=== PATIENT | male | born 1945 | race Caucasian/White ===

== ENCOUNTER 2017-10-30 10:55 | Outpatient (CLI) | payer OTHER | END 2017-10-30 10:56 | disposition home or self-care (01) | LOC: NONPT 10:55 | PROVIDERS: ATTEND Family Medicine | DX: N39.0 Urinary tract infection, site not specified (principal) | CPT/HCPCS: 81001; 87086 ==

== ENCOUNTER 2017-12-17 07:27 | Outpatient (CLI) ==
[2017-12-17 07:58] VITALS: BMI 35.9
== END 2017-12-17 07:28 | disposition short-term general hospital (02) ==
LOC: AMBL 07:27
PROVIDERS: ATTEND Internal Medicine
DX: R06.9 Unspecified abnormalities of breathing (principal); F41.0 Panic disorder [episodic paroxysmal anxiety]

== ENCOUNTER 2017-12-17 07:39 | Emergency (ER) ==
[2017-12-17 07:58] VITALS: BP 114/74; TEMP 97.9; BMI 35.9
[2017-12-17] MEDS: SOLU-MEDROL 125 MG IVP STA (08:09)
[2017-12-17] MEDS: DUONEB NEB STA (08:16)
[2017-12-17] MEDS: ATIVAN IVP STA (08:30)
--- NOTE | 2017-12-17 08:32 | DI ---
EXAM: Single frontal view of the chest HISTORY: Cough. COMPARISON: None FINDINGS: Cardiomediastinal silhouette is unremarkable at upper limit of normal for size. There is n o pneumothorax or effusion. There is no consolidation, nodule or mass. There are is questionable he aling left rib fracture noted in the lateral ninth rib. IMPRESSION: 1. No acute cardiopulmonary process or consolidation with cardiomediastinal silhouette at upper limi t of normal for size. 2. Questionable healing left rib fracture.
--- NOTE | 2017-12-17 08:40 | ED.PDOC ---
General ED Provider: Dr. ZOE MARLEY Chief Complaint: Respiratory Complaint Stated Complaint: shortness of breath Time Seen by Physician: 08:00 (arrived SHORT OF BREATH O2 SAT IN UPPER 90'S ON 2 L NC ) Mode of Arrival: Ambulance Information Source: Patient, Retirement, EMT Exam Limitations: No limitations Nursing and Triage Documentation Reviewed and Agree: Yes Reviewed sepsis parameters & appropriate labs ordered?: Yes System Inflammatory Response Syndrome: Not Applicable Sepsis Protocol: For patient's 13 years and over: Temp is 96.8 and below OR 101 and greater Pulse >90 BPM Resp >20/minute Acutely Altered Mental Status Are patient's symptoms suggestive of a new infection, such as: -Pneumonia -Skin, Soft Tissue -Endocarditis -UTI -Bone, Joint Infection -Implantable Device -Acute Abdominal Infection -Wound Infection -Meningitis -Blood Stream Catheter Infection -Unknown System Inflammatory Response Syndrome: Not Applicable (HAD A LEG OPERATION AT [facility] FOR FEMUR FX LEFT SIDE) Review of Systems - Review Of Systems Constitutional: Reports: Malaise, Weakness Eyes: Reports: No symptoms Ears, Nose, Mouth, Throat: Reports: No symptoms Respiratory: Reports: Cough, Short of air Cardiac: Reports: No symptoms GI: Reports: No symptoms : Reports: No symptoms Musculoskeletal: Reports: Other (LEFT LEG IS IN A BRACE ) Skin: Reports: No symptoms Neurological: Reports: No symptoms Endocrine: Reports: No symptoms Hematologic/Lymphatic: Reports: No symptoms All Other Systems: Reviewed and Negative Past Medical History - Past Medical History Previously Healthy: No Endocrine: Reports: DM 2 Cardiovascular: Reports: Hypertension, CHF Respiratory: Reports: None Hematological: Reports: None Gastrointestinal: Reports: GERD Genitourinary: Reports: CKD (ON DIALYSIS) Neuro/Psych: Reports: None Musculoskeletal: Reports: None Cancer: Reports: None - Surgical History General Surgical History: Reports: None - Family History Family History: Reports: None - Social History Smoking Status: Former smoker Hx Substance Use: No Alcohol Screening: None Physical Exam - Physical Exam Appearance: Ill-appearing Ill-appearing: Moderate Pain Distress: Moderate Eyes: IFEANYI, EOMI, Conjunctiva clear ENT: Ears normal, Nose normal, Oropharynx normal Respiratory: Airway patent, Breath sounds diminished, Respirations nonlabored, Rhonchi, Wheezes Cardiovascular: RRR, Pulses normal, No rub, No murmur GI/: Soft, Nontender, No masses, Bowel sounds normal, No Organomegaly Musculoskeletal: Normal strength, ROM intact, No edema, No calf tenderness Skin: Warm, Dry, Normal color Neurological: Sensation intact, Motor intact, Reflexes intact, Cranial nerves intact, Alert, Oriented Psychiatric: Affect appropriate, Mood appropriate Interpretation - Radiology Interpretation Radiology Interpretation By: Radiologist Radiology Results: No acute changes Re-Evaluation - Re-Evaluation Time of Re-Evaluation: 08:43 Status: Improved Vital Signs Stable: Yes Pain Level: 0 Appearance: NAD (AFTER ATIVAN PULSE OX IS ABOUT 100 , NOT ANXIOUS, RESTING) Lungs: Other (WHEEZING) Skin: Warm and Dry Neuro: Alert and Oriented X3 CV: RRR Critical Care Note - Critical Care Note Total Time (mins): 0 Course - Course Hematology/Chemistry: 12/17/17 07:50 12/17/17 07:50 Orders, Labs, Meds: Lab Review 12/17/17 12/17/17 12/17/17 07:50 07:50 07:50 WBC 5.95 RBC 3.09 L Hgb 9.7 L Hct 30.4 L MCV 98.4 H MCH 31.4 H MCHC 31.9 RDW Coeff of Neil 15.8 H Plt Count 266 Immature Gran % (Auto) 1.5 Neut % (Auto) 52.3 Lymph % (Auto) 31.1 [place] % (Auto) 11.8 H Eos % (Auto) 3.0 Baso % (Auto) 0.3 Immature Gran # (Auto) 0.1 Neut # (Auto) 3.1 Lymph # (Auto) 1.9 [place] # (Auto) 0.7 Eos # (Auto) 0.2 Baso # (Auto) 0.0 PT 11.2 H INR 1.10 APTT 30.4 D-Dimer (Manual) Puncture Site O2 Saturation ABG pH ABG pCO2 ABG pO2 ABG HCO3 ABG Total CO2 ABG Base Excess Orion Test FiO2 % Sodium 142 Potassium 3.5 Chloride 98 Carbon Dioxide 29 Anion Gap 18.5 BUN 19 H Creatinine 5.39 H* Estimated GFR (MDRD) 11.00 BUN/Creatinine Ratio 3.52 Glucose 59 L Lactic Acid Calcium 8.5 Total Bilirubin 0.5 AST 25 ALT 15 Alkaline Phosphatase 44 L Total Creatine Kinase 88 Troponin I 0.0510 Total Protein 6.9 Albumin 2.7 L Globulin 4.2 Albumin/Globulin Ratio 0.64 Procalcitonin Influ A Molecular Assay Influ B Molecular Assay 12/17/17 12/17/17 12/17/17 07:50 07:50 07:51 WBC RBC Hgb Hct MCV MCH MCHC RDW Coeff of Neil Plt Count Immature Gran % (Auto) Neut % (Auto) Lymph % (Auto) [place] % (Auto) Eos % (Auto) Baso % (Auto) Immature Gran # (Auto) Neut # (Auto) Lymph # (Auto) [place] # (Auto) Eos # (Auto) Baso # (Auto) PT INR APTT D-Dimer (Manual) 3136.80 Puncture Site R brachial O2 Saturation 97.0 ABG pH 7.555 H* ABG pCO2 37.1 ABG pO2 75.0 L ABG HCO3 32.9 H ABG Total CO2 34 H ABG Base Excess 11 H Orion Test + FiO2 % 21.0 Sodium Potassium Chloride Carbon Dioxide Anion Gap BUN Creatinine Estimated GFR (MDRD) BUN/Creatinine Ratio Glucose Lactic Acid Calcium Total Bilirubin AST ALT Alkaline Phosphatase Total Creatine Kinase Troponin I Total Protein Albumin Globulin Albumin/Globulin Ratio Procalcitonin 0.68 Influ A Molecular Assay Influ B Molecular Assay 12/17/17 12/17/17 08:00 08:10 WBC RBC Hgb Hct MCV MCH MCHC RDW Coeff of Neil Plt Count Immature Gran % (Auto) Neut % (Auto) Lymph % (Auto) [place] % (Auto) Eos % (Auto) Baso % (Auto) Immature Gran # (Auto) Neut # (Auto) Lymph # (Auto) [place] # (Auto) Eos # (Auto) Baso # (Auto) PT INR APTT D-Dimer (Manual) Puncture Site O2 Saturation ABG pH ABG pCO2 ABG pO2 ABG HCO3 ABG Total CO2 ABG Base Excess Orion Test FiO2 % Sodium Potassium Chloride Carbon Dioxide Anion Gap BUN Creatinine Estimated GFR (MDRD) BUN/Creatinine Ratio Glucose Lactic Acid 7.6 Calcium Total Bilirubin AST ALT Alkaline Phosphatase Total Creatine Kinase Troponin I Total Protein Albumin Globulin Albumin/Globulin Ratio Procalcitonin Influ A Molecular Assay Negative by naat Influ B Molecular Assay Positive by naat H Orders Category Date Time Status ABG DRAW REQUEST Stat CARDIO 12/17/17 07:52 Completed EKG-(ED ONLY) Stat CARDIO 12/17/17 07:51 Completed NEBULIZER TREATMENT Stat CARDIO 12/17/17 07:52 Completed NPO REMINDER: IMAGING ONCE CARE 12/17/17 09:41 Completed ED IV/MEDIPORT/POWERPORT .ONCE EMERGENCY 12/17/17 07:51 Active ABG Stat LAB 12/17/17 07:51 Completed BLOOD CULTURE (ED ONLY) Stat LAB 12/17/17 08:10 Results CBC W/ AUTO DIFF Stat LAB 12/17/17 07:50 Completed COMPREHENSIVE METABOLIC PANEL Stat LAB 12/17/17 07:50 Completed CREATINE KINASE Stat LAB 12/17/17 07:50 Completed D-DIMER Stat LAB 12/17/17 07:50 Completed FLU A/B MOLECULAR Stat LAB 12/17/17 08:00 Completed LACTIC ACID Stat LAB 12/17/17 08:10 Completed PARTIAL THROMBOPLASTIN TIME Stat LAB 12/17/17 07:50 Completed PROCALCITONIN Stat LAB 12/17/17 07:50 Completed PT WITH INR Stat LAB 12/17/17 07:50 Completed TROPONIN I Stat LAB 12/17/17 07:50 Completed 0.9 % Sodium Chloride [Saline Flush] MEDS 12/17/17 07:50 Discontinued 1 syr IVF PRN PRN Ipratropium/Albuterol Neb [Duoneb] MEDS 12/17/17 07:52 Discontinued 1 vial NEB ONCE STA Lorazepam Inj [Ativan] MEDS 12/17/17 08:21 Discontinued 0.5 mg IVP ONCE STA Methylprednisolone Sod Succ/Pf [Solu-Medrol 125 mg] MEDS 12/17/17 07:53 Discontinued 40 mg IVP ONCE STA CHEST, 1V AP ONLY Stat RADS 12/17/17 07:[address] CHEST PE PROTOCOL Stat RADS 12/17/17 09:40 Completed U/S VENOUS SCAN OMER LEGS Stat RADS 12/17/17 11:03 Completed Medications Discontinued Medications Generic Name Dose Route Start Last Admin Trade Name Freq PRN Reason Stop Dose Admin Albuterol/Ipratropium 1 vial 12/17/17 07:52 12/17/17 08:16 Duoneb NEB 12/17/17 07:53 1 vial ONCE STA Administration Lorazepam 0.5 mg 12/17/17 08:21 12/17/17 08:30 Ativan IVP 12/17/17 08:22 2 mg ONCE STA Administration Methylprednisolone Sodium Succinate 40 mg 12/17/17 07:53 12/17/17 08:09 Solu-Medrol 125 Mg IVP 12/17/17 07:54 40 mg ONCE STA Administration Sodium Chloride 1 syr 12/17/17 07:50 Saline Flush IVF PRN PRN To flush IV Vital Signs: Temp Pulse Resp BP Pulse Ox 12/17/17 07:41 97.9 F 73 28 H 114/74 99 Departure - Departure Time of Disposition: 12:00 Disposition: TRANSFER SNF Discharge Problem: Influenza B Renal failure Qualifiers: Renal failure chronicity: chronic Chronic kidney disease stage: on chronic dialysis Qualified Code(s): N18.6 - End stage renal disease Anemia Qualifiers: Anemia type: due to chronic kidney disease Instructions: Influenza (ED), Influenza (DC) Condition: Fair Pt referred to PMD for follow-up: Yes IPMP verified?: No Additional Instructions: Please call your Family Physician as soon as possible to schedule a follow-up appointment. Allergies/Adverse Reactions: Allergies codeine Adverse Reaction (Verified 12/17/17 08:29) Penicillins Adverse Reaction (Verified 12/17/17 08:29) Home Medications: Ambulatory Orders Apixaban [Eliquis] 2.5 mg PO BID 12/17/17 Aspirin 325 mg PO BID 12/17/17 Calcium Acetate 2 tab PO TIDWM 12/17/17 Carvedilol 12.5 mg PO BID 12/17/17 Cinacalcet HCl [Sensipar] 30 mg PO DAILY 12/17/17 Fenofibrate Nanocrystallized [Fenofibrate] 145 mg PO DAILY 12/17/17 Gabapentin 400 mg PO DAILY 12/17/17 Hydrocortisone [Hydrocortisone 2.5% Cream] 1 applic TP BID 12/17/17 Hydroxyzine Pamoate [Vistaril] 25 mg PO BEDTIME 12/17/17 Insulin Aspart [Novolog] 14 units SUBCUT DAILYWM 12/17/17 Insulin Glargine,Hum.rec.anlog [Lantus] 50 unit SQ BEDTIME 12/17/17 Loratadine 10 mg PO DAILY 12/17/17 Lorazepam [Ativan] 1 mg PO DAILY 12/17/17 Meclizine HCl 25 mg PO TID PRN 12/17/17 Midodrine HCl [Midodrine] 5 mg PO BID 12/17/17 Omeprazole 20 mg PO DAILY 12/17/17 Sennosides [Senna] 8.6 mg PO DAILY 12/17/17 Tamsulosin HCl [Flomax] 0.4 mg PO DAILY 12/17/17 Trazodone HCl 100 mg PO DAILY 12/17/17 Transfer Form Completed: Yes Disposition Discussed With: Patient
--- NOTE | 2017-12-17 11:10 | CT ---
EXAM: CTA of the chest. History: Short of breath, elevated D-dimer. Comparison: Chest radiograph 12/17/2017 Technique: Multiplanar CT images through the thorax were obtained following administration of IV con trast. MIP images and 3-D reconstructions were also acquired. Findings: Heart is mildly enlarged. Great vessels are unremarkable. No axillary lymphadenopathy. N o pathologically enlarged mediastinal or hilar lymph nodes. No pulmonary arterial filling defects. T here is lingular atelectasis or infiltrate. No pleural fluid and no pneumothorax. No suspicious cheryl g masses or lung nodules. Within the visualized upper abdomen, cholelithiasis. No acute osseous abnormalities. Several healing left-sided rib fractures with callous formation Impression: 1. No pulmonary embolus. 2. Lingular atelectasis and/or pneumonia. 3. Mild cardiomegaly. 4. Cholelithiasis
--- NOTE | 2017-12-17 12:18 | US ---
Bilateral lower extremity venous Doppler HISTORY: Pain and tenderness Bilateral lower extremity. FINDINGS: Lower extremity venous structures examined for spontaneous flow, compression and augmentat ion. The common femoral vein, and greater saphenous, profunda, femoral, popliteal, peroneal, anterio r tibial and posterior tibial veins were examined. Nonvisualization of the anterior tibial veins bila teral. Atherosclerotic calcified plaquing is technically inhibiting. Visualized vessels are patent t o spontaneous flow, compression and augmentation. IMPRESSION: 1.. No evidence of deep venous thrombosis Bilateral lower extremity.
== END 2017-12-17 12:50 ==
LOC: ED 07:39
DX: J10.1 Influenza due to other identified influenza virus with other respiratory manifestations (principal); N18.6 End stage renal disease; D63.1 Anemia in chronic kidney disease; Z99.2 Dependence on renal dialysis; R06.02 Shortness of breath; E11.9 Type 2 diabetes mellitus without complications; I10 Essential (primary) hypertension; Z79.899 Other long term (current) drug therapy; Z79.4 Long term (current) use of insulin; Z98.890 Other specified postprocedural states
CPT/HCPCS: 36415; 80053; 82550; 82803; 83605; 84145; 84484; 85025; 85379; 85610; 85730; 87040; 87502; 93005; 93010; 94640; 96375; 99284; 99285

== ENCOUNTER 2018-01-14 14:11 | Outpatient (CLI) | payer OTHER | END 2018-01-14 14:12 | disposition home or self-care (01) | LOC: NONPT 14:11 | PROVIDERS: ATTEND Internal Medicine Nephrology | DX: D64.9 Anemia, unspecified (principal) | CPT/HCPCS: 85014; 85018 ==

== ENCOUNTER 2018-01-28 11:49 | Outpatient (CLI) | END 2018-01-28 11:50 | disposition home or self-care (01) | LOC: NONPT 11:49 | PROVIDERS: ATTEND Family Medicine | DX: R30.0 Dysuria (principal); R82.90 Unspecified abnormal findings in urine | CPT/HCPCS: 81001; 87086 ==

== ENCOUNTER 2018-02-02 08:20 | Outpatient (CLI) | payer OTHER | END 2018-02-02 08:21 | disposition home or self-care (01) | LOC: NONPT 08:20 | PROVIDERS: ATTEND Family Medicine | DX: R30.0 Dysuria (principal); R82.90 Unspecified abnormal findings in urine | CPT/HCPCS: 81001; 87086 ==